=== PATIENT | female | born 1970 | race African-American/Black ===

== ENCOUNTER 2016-10-27 14:34 | Emergency (ER) | payer BC, MEDICAID ==
[~2016-10-27] VITALS: Ht 177.8 cm; Wt 90.7 kg
[2016-10-27] MEDS ORDERED: NITROFURANTOIN100 M2 ORAL (14:48)
[2016-10-27] MEDS ORDERED: TdaP Vaccine 0.5ml Syr IM ONE (15:15)
[2016-10-27] MEDS ORDERED: Norco 7.5mg/325mg tab ORAL ONE (15:30)
[2016-10-27] MEDS ORDERED: Bacitracin Oint UD TOPIC ONE ×2 (15:45→16:15)
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
[2016-10-27] MEDS ORDERED: NORCO1 E1 ORAL ×2 (16:40→18:50)
[2016-10-27] MEDS ORDERED: IBUPROFEN600 MG ORAL (16:40)
[2016-10-27 16:50] VITALS: BP 104/64
--- NOTE | 2016-10-28 09:55 | Diagnostic Imaging Report ---
Indication: Left foot pain Technique: XRAY FOOT MIN 3V LEFT Comparison: None Findings: There is no acute fracture or sulcation. There is a small posterior calcaneal enthesophyte. Bone mineralization is normal. Impression: No acute osseous abnormality.
--- NOTE | 2016-10-28 09:56 | Diagnostic Imaging Report ---
Indication: Left ankle pain Technique: XRAY ANKLE MIN 3VWS LEFT Comparison: None Findings: There is no acute fracture or dislocation. Bone mineralization is normal. Mild soft tissue swelling is noted. Impression: No acute osseous abnormality. Mild soft tissue swelling.
== END 2016-10-27 16:50 | disposition home or self-care (01) ==
LOC: EMR 15:05
DX: S93.402A Sprain of unspecified ligament of left ankle, initial encounter (principal); M77.52 Other enthesopathy of left foot and ankle; S80.812A Abrasion, left lower leg, initial encounter; Z23 Encounter for immunization; V09.9XXA Pedestrian injured in unspecified transport accident, initial encounter; Y92.9 Unspecified place or not applicable; Y99.8 Other external cause status
CPT/HCPCS: 29515; 90471; 90715; 99284

== ENCOUNTER 2016-11-19 11:10 | Emergency (ER) | payer BC ==
[~2016-11-19] VITALS: Ht 177.8 cm; Wt 90.7 kg
[~2016-11-19 11:10] MED LIST: IBUPROFEN600 MG ORAL; NITROFURANTOIN100 M2 ORAL; NORCO1 E1 ORAL
[2016-11-19 11:21] VITALS: BP 125/90
[2016-11-19] MEDS ORDERED: Ketorolac 60mg Inj IM ONE (11:45)
[2016-11-19] MEDS ORDERED: Bacitracin Oint UD TOPIC ONE (11:45)
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
[2016-11-19] MEDS ORDERED: TRAMADOL HCL50 MG ORAL (13:03)
[2016-11-19] MEDS ORDERED: IBUPROFEN600 MG ORAL (13:03)
[2016-11-19 13:19] VITALS: BP 120/72
== END 2016-11-19 13:22 | disposition home or self-care (01) ==
LOC: EMR 11:55
DX: S43.422A Sprain of left rotator cuff capsule, initial encounter (principal); S00.12XA Contusion of left eyelid and periocular area, initial encounter; W19.XXXA Unspecified fall, initial encounter; Y92.019 Unspecified place in single-family (private) house as the place of occurrence of the external cause
CPT/HCPCS: 96372; 99284